=== PATIENT | male | born 1945 | race Caucasian/White ===

== ENCOUNTER → 2023-03-30 14:55 | Outpatient (REF) | payer OTHER, SELFPAY | LOC: HWRAD 14:55 | PROVIDERS: ATTENDING PHYSICIAN Internal Medicine Rheumatology; FAMILY PHYSICIAN Family Medicine | DX: M25.532 Pain in left wrist (principal) | CPT/HCPCS: 73110 ==

== ENCOUNTER → 2023-05-01 10:24 | Outpatient (REF) | payer OTHER, SELFPAY | LOC: HWRAD 10:24 | PROVIDERS: ATTENDING PHYSICIAN Specialist; FAMILY PHYSICIAN Family Medicine | DX: M25.562 Pain in left knee (principal) | CPT/HCPCS: 73564 ==

== ENCOUNTER → 2023-07-03 06:44 | Outpatient (REF) | payer OTHER, SELFPAY | LOC: PAVMRI 06:44 | PROVIDERS: ATTENDING PHYSICIAN Student in an Organized Health Care Education/Training Program; FAMILY PHYSICIAN Family Medicine | DX: M25.511 Pain in right shoulder (principal) | CPT/HCPCS: 73221 ==

== ENCOUNTER → 2023-12-06 11:05 | Outpatient (REF) | payer OTHER, SELFPAY | LOC: MRI 3T 11:05 | PROVIDERS: ATTENDING PHYSICIAN Family Medicine | DX: H53.2 Diplopia (principal) | CPT/HCPCS: 70553; A9575 ==

== ENCOUNTER → 2023-12-18 06:29 | Outpatient (REF) | payer OTHER, SELFPAY | LOC: RAD 06:29 | PROVIDERS: ATTENDING PHYSICIAN Family Medicine | DX: R60.0 Localized edema (principal) | CPT/HCPCS: 93970 ==

== ENCOUNTER → 2023-12-31 10:19 | Outpatient (REF) | payer OTHER, SELFPAY | LOC: RAD 10:19 | PROVIDERS: ATTENDING PHYSICIAN Family Medicine | DX: R60.0 Localized edema (principal) | CPT/HCPCS: 93970 ==

== ENCOUNTER → 2024-01-09 08:10 | Outpatient (REF) | payer OTHER, SELFPAY | LOC: RAD 08:10 | PROVIDERS: ATTENDING PHYSICIAN Internal Medicine Rheumatology; FAMILY PHYSICIAN Family Medicine | DX: E55.9 Vitamin D deficiency, unspecified (principal); M06.00 Rheumatoid arthritis without rheumatoid factor, unspecified site; M18.0 Bilateral primary osteoarthritis of first carpometacarpal joints | CPT/HCPCS: 77080 ==

== ENCOUNTER 2024-03-14 09:00 | Outpatient (RCR) | payer OTHER, SELFPAY | END 2024-03-14 23:59 | disposition home or self-care (01) | LOC: RPT 09:00 | PROVIDERS: ATTENDING PHYSICIAN Orthopaedic Surgery Hand Surgery; FAMILY PHYSICIAN Family Medicine | DX: M25.511 Pain in right shoulder (principal); Z73.6 Limitation of activities due to disability; M62.81 Muscle weakness (generalized); M19.011 Primary osteoarthritis, right shoulder; Z91.81 History of falling | CPT/HCPCS: 97110; 97162 ==

== ENCOUNTER 2024-04-11 08:27 | Outpatient (RCR) | payer OTHER, SELFPAY | END 2024-04-11 23:59 | disposition home or self-care (01) | LOC: RPT 08:27 | PROVIDERS: ATTENDING PHYSICIAN Orthopaedic Surgery Hand Surgery; FAMILY PHYSICIAN Family Medicine | DX: M25.511 Pain in right shoulder (principal); Z73.6 Limitation of activities due to disability; M62.81 Muscle weakness (generalized); M19.011 Primary osteoarthritis, right shoulder; Z91.81 History of falling | CPT/HCPCS: 97010; 97110; 97112; 97140 ==

== ENCOUNTER 2024-04-15 11:33 | Outpatient (RCR) | payer OTHER, SELFPAY | END 2024-04-15 23:59 | disposition home or self-care (01) | LOC: RPT 11:33 | PROVIDERS: ATTENDING PHYSICIAN Orthopaedic Surgery Hand Surgery; FAMILY PHYSICIAN Family Medicine | DX: M25.511 Pain in right shoulder (principal); Z73.6 Limitation of activities due to disability; M62.81 Muscle weakness (generalized); M19.011 Primary osteoarthritis, right shoulder; Z91.81 History of falling | CPT/HCPCS: 97110; 97112 ==

== ENCOUNTER → 2024-04-23 08:09 | Outpatient (REF) | payer OTHER, SELFPAY | LOC: HWEVLT 08:09 | PROVIDERS: ATTENDING PHYSICIAN Radiology Vascular & Interventional Radiology | DX: I83.891 Varicose veins of right lower extremity with other complications (principal) | CPT/HCPCS: 36478; C1769 ==

== ENCOUNTER → 2024-05-07 11:31 | Outpatient (REF) | payer OTHER, SELFPAY | LOC: HWEVLT 11:31 | PROVIDERS: ATTENDING PHYSICIAN Radiology Diagnostic Radiology | DX: I83.891 Varicose veins of right lower extremity with other complications (principal) | CPT/HCPCS: 93971 ==